=== PATIENT | female | born 1990 | race Caucasian/White ===

== ENCOUNTER → 2022-05-03 09:22 | Outpatient (BNVA) | payer OTHER, SELFPAY | PROVIDERS: PCP Nurse Practitioner Gerontology; Referring Provider Nurse Practitioner Gerontology; Visit Provider Surgery | DX: L73.2 Hidradenitis suppurativa (principal) ==

== ENCOUNTER 2022-06-20 06:04 | Day surgery (SDC) | payer OTHER, SELFPAY ==
--- NOTE | 2022-06-17 10:31 | P.CONAN_ITS ---
Documented by User: Magui Iqbal NP 06/17/22 10:32 HPI - Anesthesia Eval Consult details Narrative: 32yo F for Bilateral Excision Inguinal Hidradenitis [facility] Active Problems Active Problems: All Active Problems (Updated 06/14/22 @ 16:22 by Kaylin Clark, RN) Hidradenitis suppurativa (Acute) Past Medical History Medical History (Updated 06/14/22 @ 16:22 by Kaylin Clark RN) History of anemia HSV (herpes simplex virus) infection Surgical History Surgical History History of incision and drainage (04/25/18) [place] teeth extracted Social History Social History Alcohol intake: current Alcohol intake frequency: holidays/special occasions only Patient Tobacco Use Status: Never used Tobacco Use of substances other than those prescribed or required for medical reasons: No Are you DNR?: No Advance Directives: No Advance Directives Information Provided: Yes Meds Allergies Allergy/AdvReac Type Severity Reaction Status Date / Time No Known Allergies Allergy Verified 06/14/22 16:29 Home Medications Medication Instructions Recorded Confirmed Last Taken Type docusate sodium 100 mg capsule 1 cap PO BID PRN constipation 06/14/22 06/14/22 Unknown History fluticasone propionate 50 1 spray intranasal BID 06/14/22 06/14/22 Unknown History mcg/actuation nasal spray,suspension prenat.vits,amanda,[id number] 1 tab PO DAILY 06/14/22 06/14/22 Unknown History Exam Exam Date and Time: June 17, 2022 1031 Assessment and Plan Assessment Anesthesia Assessment: Chart Reviewed Documented by User: Nancy Sanches MD 06/20/22 08:02 PMFSH Past Medical History Medical History (Updated 06/14/22 @ 16:22 by Kaylin Clark RN) History of anemia HSV (herpes simplex virus) infection Family History Family history of problems with anesthesia: No Surgical History Surgical History History of incision and drainage (04/25/18) [place] teeth extracted History of Problems with Anesthesia: Yes Social History Social History Alcohol intake: current Alcohol intake frequency: holidays/special occasions only Patient Tobacco Use Status: Never used Tobacco Use of substances other than those prescribed or required for medical reasons: No Are you DNR?: No Advance Directives: No Advance Directives Information Provided: Yes Meds Allergies Allergy/AdvReac Type Severity Reaction Status Date / Time No Known Allergies Allergy Verified 06/14/22 16:29 Home Medications Medication Instructions Recorded Confirmed Last Taken Type docusate sodium 100 mg capsule 1 cap PO BID PRN constipation 06/14/22 06/14/22 Unknown History fluticasone propionate 50 1 spray intranasal BID 06/14/22 06/14/22 Unknown History mcg/actuation nasal spray,suspension prenat.vits,amanda,[id number] 1 tab PO DAILY 06/14/22 06/14/22 Unknown History Exam Airway Mallampati Class: I TM Dist: >3cm Neck ROM: Full Heart: rr Lungs: cta Assessment and Plan Final Anesthetic Review Family History of Problems with Anesthesia: No History of Problems with Anesthesia: Yes NPO: Yes ASA Class: I and II Final Preanesthetic Review: No Changes in Pt Med Stat, Meds/Allgs Chart Reviewed, Consent Obtained/Reviewed and Anes Risks/Benef Reviewed Patient Risk: Low Procedure Risk: Low Anesthetic Plan Anesthetic Plan: GA Disposition: Standard PACU
[2022-06-20 06:23] VITALS: BMI 23.9
[2022-06-20 06:28] LABS: UPreg QC Valid YES; Urine Pregnancy NEGATIVE (NEGATIVE)
[2022-06-20 06:30] VITALS: BP 103/41; PULSE 83; RESP 16; TEMP 36.4; O2SAT 99
[2022-06-20] MEDS: Lactated Ringers 1,000 ML 100 ML IVCONT (06:42)
--- NOTE | 2022-06-20 07:40 | P.HPSUR_ITS ---
Pre-Procedural Eval Section A Date of Service: 06/20/22 The patient is an INPATIENT: No Changes since office visit: Yes Patient answered all questions; No Cold of Flu in the past 2 weeks, No New Medical Problems and No Changes in Medication The History & Physical has been completed within 30 days and I have reviewed it.: No Section B Chief Complaint: Hidradenitis suppurativa Details of Present Illness: No change since previous evaluation Relevant Family History (Specify if Yes): No Relevant Social History: None Present Medications: see Short Stay Collaborative assessment Medical History: No relevant PMH History of Previous Operations: Relevant previous surgery/procedure and date(s) (2019 Previous axillary and inguinal excision) Allergies: Allergies Allergy/AdvReac Type Severity Reaction Status Date / Time No Known Allergies Allergy Verified 06/14/22 16:29 Review of Systems Sugical H&P ROS: Negative: Constitution, Cardiovascular, Respiratory, Neurolo gical, Psychiatric, Hem-Onc, Allergic/Immunologic, Gastrointestinal, Genitourinary, Musculoskeletal, Integumentary, Endocrine and Eyes/Ears/Nose/Throat Exam Surgical H&P Exam: Normal: HEENT, Normal: Heart, Normal: Lungs, Normal: Extremities, Normal: Abdomen, Normal: Skin and Normal: Neurological Plan Diagnosis/Plan: Unchanged I have reviewed the history and physical and performed a pertinent physical examination on my patient. No changes have occurred unless specified. Time Spent With Patient Time: Total time managing care of this patient today ____ minutes.
--- NOTE | 2022-06-20 08:14 | W.PM.OPN ---
Operative Note Operative Note Date of Service: 06/20/22 Narrative: Preoperative diagnosis:Hidradenitis bilateral groins Postoperative diagnosis: same Procedure: excision of hidradenitis bilateral groins Surgeon: Genaro Zheng MD Sales And Service Technician: Latonya Rodríguez PA-C Anesthesia: general LMA Indications for procedure: 32-year-old female patient with a previous history of hidradenitis bilateral groins and bilateral axilla now presenting with increasing cystic lesion of the right groin as well as developing lesion in the left groin. She presents today for excision of apparent hidradenitis. Operative findings: 2 cm round cystic lesion of the right groin Above the inguinal crease. Second lesion on the left side measures approximately 1.5 cm. Both lesions were excised pathology for further examination. Specimen: Bilateral hidradenitis groin Estimated blood loss: less than 2 mL Complications: none Procedure details: patient was brought to the OR placed in a supine position. After administering general anesthesia patient's bilateral groins were prepped Betadine and draped in a sterile fashion. A surgical time-out was called and the consent confirmed. Patient received preoperative antibiotics and Venodyne boots were in place. Local anesthesia consisting of 0.5% Sensorcaine with epinephrine was then infiltrated in elliptical fashion around both lesions. Starting on the right side elliptical incision was created oriented longitudinally. This carried out through subcutaneous tissue and around the lesion in the subcutaneous tissue. This was passed off the table and sent to pathology for further examination. Hemostasis was assured using electrocautery. Dermis was then reapproximated using interrupted 3-0 Polysorb sutures. Skin was closed using interrupted 4-0 nylon sutures. Attention was then directed to left groin were again local anesthesia was infiltrated. An elliptical incision oriented longitudinally was then created around the lesion. This was carried out through subcutaneous tissue and around the entire lesion. The specimen was passed off the table and sent to pathology for further examination. Hemostasis was assured using electrocautery. Dermis was then reapproximated using interrupted 3-0 Polysorb sutures. Skin was closed using interrupted 4-0 nylon sutures. Sterile dressings consisting of 2 x 2 gauze and Tegaderm were then applied. The patient tolerated the procedure well. Sponge, instrument, and needle counts reported as correct. The patient was transferred to PACU in stable condition.
[2022-06-20 08:29] VITALS: BP 96/57; PULSE 80; RESP 18; TEMP 36.1; O2SAT 97
[2022-06-20 08:34] VITALS: BP 99/66; PULSE 74; RESP 16; O2SAT 99
[2022-06-20 08:39] VITALS: BP 100/57; PULSE 72; RESP 20; O2SAT 100
[2022-06-20 08:44] VITALS: BP 116/68; PULSE 70; RESP 16; O2SAT 100
[2022-06-20] MEDS: oxyCODONE HCl Immed Release 5 MG TABLET PO (08:46)
[2022-06-20 08:59] VITALS: BP 107/66; PULSE 66; RESP 16; TEMP 36.1; O2SAT 100
== END 2022-06-20 09:28 | disposition home or self-care (01) ==
PROVIDERS: Nurse Practitioner; PCP Nurse Practitioner Gerontology; Visit Provider Surgery
PROC: (CPT 11462; principal; 2022-06-20 07:30)
DX: L73.2 Hidradenitis suppurativa (principal); L72.0 Epidermal cyst; L90.5 Scar conditions and fibrosis of skin; Z88.8 Allergy status to other drugs, medicaments and biological substances; Z88.0 Allergy status to penicillin
CPT/HCPCS: 11462; 81025; 88304; 88305; J0690; J2250; J3010

== ENCOUNTER → 2022-06-30 13:52 | Outpatient (BNVA) | payer OTHER, SELFPAY | PROVIDERS: PCP Nurse Practitioner Gerontology; Referring Provider Nurse Practitioner Gerontology; Visit Provider Surgery | DX: Z13.89 Encounter for screening for other disorder (principal) ==